=== PATIENT | female | born 1975 | race Caucasian/White ===

== ENCOUNTER 2016-12-10 21:23 | Emergency (ER) | payer BC, OTHER ==
--- NOTE | 2016-12-10 22:00 | ERNOTE ---
Lower Extremity HPI - General Lower Extremities Pain: knee: right - twisted Time Seen by Provider: 12/10/16 21:55 Source: patient Exam Limitations: no limitations - Immun/Allergies/Home Medications Immunizations: IMMUNIZATION HX Immunizations Up to Date Yes History of Influenza Vaccine No Hx Pneumococcal Vaccination No Allergies/Adverse Reactions: Allergies Allergy/AdvReac Type Severity Reaction Status Date / Time fexofenadine HCl Allergy Verified 12/10/16 21:34 [From Cyndi] hydrocodone Allergy Verified 12/10/16 21:44 Home Medications: HOME MEDICATIONS Baclofen 10 mg PO BID 12/21/14 [Last Taken Unknown] Hydrochlorothiazide [Hydrodiuril] 25 mg PO DAILY 05/28/15 [Last Taken Unknown] Cetirizine HCl [Zyrtec] 10 mg PO DAILY 12/10/16 [Last Taken Unknown] Diclofenac Sodium 75 mg PO BID 12/10/16 [Last Taken Unknown] Duloxetine HCl [Cymbalta] 30 mg PO DAILY 12/10/16 [Last Taken Unknown] Hydroxychloroquine Sulfate [Plaquenil] 200 mg PO BID 12/10/16 [Last Taken Unknown] Levonorgestrel [Mirena] 1 each IY DAILY 12/10/16 [Last Taken Unknown] Losartan Potassium [Cozaar] 50 mg PO Q48H 12/10/16 [Last Taken Unknown] sulfaSALAzine [Sulfasalazine Dr] 500 mg PO BID 12/10/16 [Last Taken Unknown] - History of Present Illness Narrative: Pt was walking and twisted her knee. She now has pain with movement. Occurred: just prior to arrival Method of Injury: Reports: twisted Modifying Factors - (Improves): Reports: immobilization Modifying Factors - (Worsens): Reports: movement Review of Systems - Review of Systems Constitutional: Present: no symptoms reported EYE: Present: no symptoms reported ENT: Present: no symptoms reported Respiratory: Present: no symptoms reported Cardiology: Present: no symptoms reported Gastrointestinal/Abdominal: Present: no symptoms reported Genitourinary: Present: no symptoms reported Musculoskeletal: Present: See HPI, joint pain, joint swelling. Absent: back pain Skin: Present: no symptoms reported Neurological: Absent: numbness, tingling Endocrine: Present: no symptoms reported Hematologic/Lymphatic: Present: no symptoms reported Psych: Present: no symptoms reported - Patient's Past Medical History Patient History - Medical: Chronic Pain, Migraines, Seizures, Other Patient History - Cardiac/Respiratory: Hypertension Patient History - Cancer: No Hx of Cancer Patient History - Surgical Procedures: Other Patient History - Other: None LMP (females 10-50): 2013 - Social History Living Situations: home Abuse History: No History of abuse Psych History: Hx of Anxiety, Hx of Depression, Current tx/ever been on anti- depressants or anti-anxiety meds Smoking Status: Never smoker Alcohol Use: none Drug Use: none - Immunizations Immunizations Up to Date: Yes Hx Pneumococcal Vaccination: No History of Influenza Vaccine: No Physical Exam - Physical Exam General Appearance: Present: wd/wn, alert, no apparent distress Neck: Present: normal inspection, supple Respiratory: Present: no respiratory distress, no accessory muscle use Extremity Exam: Present: no edema, bony tenderness - right patella. Absent: calf tenderness, joint redness, joint swelling Neurological Exam: Present: alert, oriented, normal mood/affect Skin Exam: Present: normal color, warm/dry ED Progress - Vital Signs Vital Signs: Vital Signs 12/10/16 21:29 Temperature 36.6 C Pulse Rate 83 Respiratory 18 Rate Blood Pressure 161/99 O2 Sat by Pulse 96 Oximetry - X-Ray X-Ray #1 X-Ray: knee Interpretation: Interp. by me X-ray Comments: No fracture or dislocation - Progress/Reassessment Chief Complaint: Lower Extremity Pain/ Injury Departure Clinical Impression: Strain of right knee Qualifiers: Encounter type: initial encounter Qualified Code(s): S86.911A - Strain of unspecified muscle(s) and tendon(s) at lower leg level, right leg, initial encounter - Departure Disposition: Home self-care Condition: Good Instructions: Cryotherapy, [id number], Knee Sprain, [id number] Additional Instructions: continue to take your current medications for pain. Follow up with your regular doctor if not improving. Referrals: Fabi Ivory MD [Primary Care Provider] -
--- OUTSIDE RECORDS SUMMARY | 2016-12-10 22:02 | XMS REPORT | Continuity of Care Document ---
:1975 Author Organization [employer] [place] [address] Care Team Providers Name Role Phone Cachorro Fabi Alejandro Primary Care Provider [phone] Source Comments This disclosure is being made pursuant to the [employer] program and maynot contain all information available regarding this patient.[employer] Active Allergies and Adverse Reactions Allergen Noted Date Severity Reactions Comments Cyndi 10/16/2015 Medium Rash,Dizziness Vicodin 03/09/2016 Low Itching Current Medications Be aware that medications may not be up to date as of this document. Alwaysverify current medications with the patient. Prescription Sig. Disp. Refills Start Date End Date Status cetirizine (ZYRTEC) 10 Take 10 mg Active MG tablet by mouth daily. polyethylene glycol Take 17 g by Active (GLYCOLAX) packet mouth daily. hydroxychloroquine Take 1 60 tablet 11 11/14/2015 Active (PLAQUENIL) 200 MG tablet by tablet mouth 2 (two) times daily. DULoxetine (CYMBALTA) 30 Take 1 01/23/2016 Active MG capsule capsule by mouth daily. traMADol (ULTRAM) 50 MG Take 1 01/02/2016 Active tablet tablet by mouth every 6 (six) hours as needed. sulfaSALAzine 1,000 mg 2 11 10/05/2016 Active (AZULFIDINE) 500 MG EC (two) times tablet daily. hydrochlorothiazide Take 1 30 tablet 5 11/29/2016 Active (HYDRODIURIL) 25 MG tablet by tablet mouth daily. baclofen (LIORESAL) 10 Take 1 60 tablet 5 11/29/2016 Active MG tablet tablet by mouth 2 (two) times daily. diclofenac sodium Take 1 60 tablet 11 11/29/2016 Active (VOLTAREN) 75 MG EC tablet by tablet mouth 2 (two) times daily. baclofen (LIORESAL) 10 Take 10 mg 11/30/19 Discontinued MG tablet by mouth 2 17 (two) times daily. hydrochlorothiazide Take 25 mg 11/30/19 Discontinued (HYDRODIURIL) 25 MG by mouth 17 tablet daily. Active Problems Problem Noted Date Morbid obesity with BMI of 50.0-59.9, adult (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) 03/09/2016 Most Recent Encounters Date Type Specialty Providers Description 11/30/2016 Telephone Rheumatology Evelyn Gilbert LPN Results 11/29/2016 Office Visit Rheumatology Tung Mckeon MD Osiris-Danlos syndrome (Primary Dx); Morbid obesity with BMI of 50.0-59.9, adult ([facility]) Social History Tobacco Use Types Packs/Day Years Used Date Never Smoker Smokeless Tobacco: Never Used Alcohol Use Drinks/Week oz/Week Comments No 0 Standard drinks or equivalent 0.0 Last Filed Vital Signs Vital Sign Reading Time Taken Blood Pressure 138/86 11/29/2016 2:53 PM CDT Pulse 71 11/29/2016 2:53 PM CDT Temperature - - Respiratory Rate - - Height 1.6 m (5' 3") 10/16/2015 10:31 AM CDT Weight 131.815 kg (290 lb 9.6 oz) 11/29/2016 2:53 PM CDT Body Mass Index 51.49 11/29/2016 2:53 PM CDT Oxygen Saturation - - Plan of Care Health Maintenance Due Date Last Done Comments Tetanus/Pertussis (1 - Tdap) 1996 Pap Smear 1998 Influenza Immunization (#1) 2016 Results from Last 3 Months Sedimentation rate (11/29/2016 3:28 PM) Component Value Range Sedimentation Rate 36(H) 0-20 mm/hr Narrative Testing performed at [facility], [address] [place] [address].[employer] [employer] Shiva Andrews MD High sensitivity CRP (11/29/2016 3:28 PM) Component Value Range CRP 13.70Comment: mg/L Cardiac Risk Assessment(mg/L) <0.6Normal 0.7 - 1.1 Relative Risk 1.7 1.2 - 2.1 Relative Risk 2.6 > 2.2 Relative Risk 2.9 > 4.94The high sensitivity CRP result may be confounded by acute inflammatory disease. Clinical correlation essential.Inflammatory process: 0.07 - 4.94 mg/L Narrative Testing performed at [facility], [address] [place] [address].[employer] [employer] Shiva Andrews MD Comprehensive metabolic panel (11/29/2016 3:28 PM) Component Value Range Glucose 81Comment: 60-100 mg/dL Fasting Plasma Glucose (FPG)<100 MG/DL Impaired Fasting Glucose (IFG) 100-125 MG/DL Provisional Diagnosis of Diabetes Mellitus > sh=760 MG/DL (Diagnosis Must Be Confirmed) BUN, Blood 12 7-19 mg/dL Creatinine 0.7 0.6-1.2 mg/dL Glomerular Filtration Rate 109 >90 mL/min/1.73mm2 Estimate Glomerlular Filtration Rate 126Comment:The estimated GFR >90 mL/min/1.73mm2 Estimate- has not been validated for women or patients with serious comorbid conditions, or with extremes of body size, muscle mass, or nutritional status. Calcium 9.1 8.4-10.2 mg/dL Sodium 139 136-145 mmol/L Potassium 3.8 3.5-4.6 mmol/L Chloride 106 99-111 mmol/L CO2 25.8 21.0-32.0 mmol/L Albumin 3.4(L) 3.5-5.0 g/dL Total Protein 6.8 6.1-8.0 g/dL Bilirubin Total 0.5 0.2-1.2 mg/dL Alkaline Phosphatase 65 40-150 U/L AST 13 5-34 U/L ALT 13 0-55 u/L Narrative Testing performed at [facility], [address] [place] [address].[employer] [employer] Shiva Andrews MD CBC auto differential (11/29/2016 3:28 PM) Component Value Range WBC 9.4 3.1-11.0 x10^3/uL RBC 3.99(L) 4.00-5.10 x10^6/uL Hemoglobin 12.1(L) 12.5-15.3 g/dL Hematocrit 35.6 33.7-46.0 % MCV 89.2 82.0-98.0 fL MCH 30.3 27.2-33.3 pg MCHC 34.0 32.0-36.0 g/dL RDW 12.1 11.5-14.7 % SD-RDW 39.5 36.5-50.0 fL Platelets 276 150-450 x10^3/uL MPV 10.4 9.1-12.1 fL NE% 68.2 42.0-76.0 % %LYMPH 20.5 13.5-48.0 % %MONO 9.0 3.5-14.0 % % Eosinophils 1.6 0.0-7.0 % % Basophils 0.4 0.0-1.5 % Imm Gran Relative 0.3 0.0-1.0 % NE# 6.4 1.2-7.3 x10^3/uL Lymphs # 1.9 0.7-3.5 x10^3/uL [place]# 0.9 0.2-0.9 x10^3/uL Eosinophil # 0.2 0.0-0.5 x10^3/uL Baso# 0.0 0.0-0.1 x10^3/uL Imm Gran Absolute 0.03 0.00-0.10 x10^3/uL NRBC % 0.00 0.00-0.10 /100 WBC Specimen BLOOD Narrative Testing performed at [facility], [address] [place] [address].[employer] [employer] Shiva Andrews MD Insurance Payer Benefit Plan / Subscriber ID Type Phone Address Group [employer] [facility] [id number] Out of State [phone] [id number] [facility] [place] [place] [address]
[2016-12-10 23:49] VITALS: BP 152/87
== END 2016-12-10 23:45 | disposition home or self-care (01) ==
LOC: ER 21:23
DX: S86.911A Strain of unspecified muscle(s) and tendon(s) at lower leg level, right leg, initial encounter (principal); Y93.01 Activity, walking, marching and hiking; Y92.9 Unspecified place or not applicable; Y99.9 Unspecified external cause status; I10 Essential (primary) hypertension

== ENCOUNTER 2017-07-03 21:37 | Emergency (ER) | payer BC, MEDICARE ==
--- NOTE | 2017-07-03 22:08 | ERNOTE ---
Headache ER HPI - Narrative Date of Service: 07/03/17 - General Presenting Symptoms: headache, facial pain, fever Time Seen by Provider: 07/03/17 21:50 Source: patient Exam Limitations: no limitations - Immun/Allergies/Home Medications Immunizations: IMMUNIZATION HX Immunizations Up to Date Yes History of Influenza Vaccine No Hx Pneumococcal Vaccination No Allergies/Adverse Reactions: Allergies fexofenadine HCl [From Cyndi] Allergy (Verified 07/03/17 21:47) hydrocodone Allergy (Verified 07/03/17 21:47) Home Medications: HOME MEDICATIONS Baclofen 10 mg PO BID 12/21/14 [Last Taken Unknown] Hydrochlorothiazide [Hydrodiuril] 25 mg PO DAILY 05/28/15 [Last Taken Unknown] Diclofenac Sodium 75 mg PO BID 12/10/16 [Last Taken Unknown] Duloxetine HCl [Cymbalta] 30 mg PO DAILY 12/10/16 [Last Taken Unknown] Hydroxychloroquine Sulfate [Plaquenil] 200 mg PO BID 12/10/16 [Last Taken Unknown] Levonorgestrel [Mirena] 1 each IY DAILY 12/10/16 [Last Taken Unknown] sulfaSALAzine [Sulfasalazine Dr] 500 mg PO BID 12/10/16 [Last Taken Unknown] Benzonatate 200 mg PO Q8H PRN #30 capsule 07/03/17 [Last Taken Unknown] Loratadine 10 mg PO PRN 07/03/17 [Last Taken Unknown] - Pain Pain Score: 2 - History of Present Illness Narrative: Pt is a 42 year old female who presents with complaints of malaise, fevers up to 104.1, cough, right ear pain, nasal drainage and sinus pain which began one week ago. These symptoms have progressively getting worse. She also endorses a CANO and lightheadedness. She denies n/v/d, SOB, wheezing, CP, palpations, confusion, or vision changes. She states that all members of her family have been sick with similar symptoms, but have not sought medical attention. She hasn 't been taking anything at home for these symptoms. She also reports being noncompliant with all over her medication except for her BP medication, but she hasn't taken that in one week. Prior to coming in she states she developed right sided facial numbness. She does not receive the influenza vaccine. Nothing but makes any of her symptoms better or worse. Date (Duration): 06/26/17 Timing of Headache: constant Quality: Present: achy, pressure Severity Maximum: Present: moderate Severity-Currently: Present: moderate Headache frequency: Present: no recent headache Modifying Factors - (Improves): Reports: rest Associated Symptoms: Reports: fever/chills, nasal congestion, nasal drainage, fatigue, numbness/tingling, light-headedness. Denies: nausea, vomiting, facial pain, weakness, vision changes, confusion, dizziness, loss of consciousness, seizures, neck pain/stiffness, speech problems Review of Systems - Review of Systems Constitutional: Present: fever, chills, fatigue, malaise, decreased activity level EYE: Present: no symptoms reported ENT: Present: ear pain, nose congestion, nasal drainage. Absent: ear discharge , sore throat, throat swelling Respiratory: Present: cough. Absent: shortness of breath, orthopnea, wheezing Cardiology: Absent: chest pain, palpitations Gastrointestinal/Abdominal: Absent: nausea, vomiting, diarrhea Genitourinary: Absent: frequency, pain, dysuria Musculoskeletal: Present: muscle stiffness Skin: Present: no symptoms reported Neurological: Present: headache, dizziness/light-headedness, numbness - right facial around mouth Endocrine: Present: no symptoms reported Hematologic/Lymphatic: Present: no symptoms reported Psych: Present: no symptoms reported - Patient's Past Medical History Patient History - Medical: Chronic Pain, Migraines, Seizures, Other Patient History - Cardiac/Respiratory: Hypertension Patient History - Cancer: No Hx of Cancer Patient History - Surgical Procedures: Other Patient History - Other: None - Social History Abuse History: No History of abuse Psych History: Hx of Anxiety, Hx of Depression, Current tx/ever been on anti- depressants or anti-anxiety meds Smoking Status: Never smoker Have you smoked in the past 12 months: No Do you dip or chew tobacco: No Alcohol Use: none Drug Use: none - Immunizations Immunizations Up to Date: Yes Hx Pneumococcal Vaccination: No History of Influenza Vaccine: No Physical Exam - Physical Exam General Appearance: Present: wd/wn, alert, no apparent distress, obese Head Exam: Present: normal inspection, no evidence of injury Eye Exam: Normal inspection: bilateral Ears, Nose, Throat: Present: cerumen impaction - left, nasal congestion, sinus pain/drainage, pharyngeal erythema. Absent: normal pharynx, pharyngeal swelling , tonsillar exudate Neck: Present: normal inspection, nontender. Absent: lymphadenopathy (R), lymphadenopathy (L) Respiratory: Present: no respiratory distress, normal breath sounds, no accessory muscle use, chest nontender, lungs clear. Absent: crackles, rales, rhonchi, wheezing Cardiovascular/Chest: Present: regular rate, rhythm, no murmur, normal peripheral pulses Gastrointestinal/Abdominal: Present: normal bowel sounds, nontender, nondistended, soft, no organomegaly Back Exam: Present: no CVA tenderness Extremity Exam: Present: normal inspection, non-tender, normal range of motion, no edema Neurological Exam: Present: alert, oriented, normal mood/affect, no motor/ sensory deficits, other - pt has no evidence of slurred speech, tongue midline, face is symmetric, there is no pronator driff . Absent: facial droop, motor weakness, disoriented to person, disoriented to place, disoriented to situation Skin Exam: Present: normal color, warm/dry Lymphatic Exam: Present: no adenopathy ED Progress - Vital Signs Patient's Vital Signs:: I have reviewed the patient's vital signs. Vital Signs: Vital Signs 07/03/17 21:41 Temperature 37.1 C Pulse Rate 87 Respiratory 16 Rate Blood Pressure 161/118 O2 Sat by Pulse 99 Oximetry - X-Ray X-Ray #1 X-Ray: chest Interpretation: Interp. by me X-ray Comments: No evidence of acute cardiopulmonary processes. - Progress/Reassessment Chief Complaint: Headache Progress:: Improved Plan - Plan Plan: Pt is influenza B positive. She has been given Tylenol for her fever here. I am reluctant to given pt medication to lower her BP as she is noncompliant with her medication and she probably lives elevated. I have went over the importance of not just taking her BP medication, but all of her medication. Chest xray is without any acute findings. She is out of the window for treatment of Tamiflu. She will be sent home with luisa garcia with instructions to follow up with her PCP in one week and return if symptoms worsen or do not improve. Facial numbness has since improved, she did not have any clinical signs that I would suspect that this is neurological in nature. Departure Clinical Impression: Influenza B, Cough Fever Qualifiers: Fever type: unspecified Qualified Code(s): R50.9 - Fever, unspecified Hypertension Qualifiers: Hypertension type: essential hypertension Qualified Code(s): I10 - Essential ( primary) hypertension - Departure Disposition: Home Follow Up Needed Condition: Good Instructions: Influenza, Adult, [id number] Additional Instructions: You have influenza A, since you have had symptoms for a week, you are out of the timeframe for treatment with Tamiflu. Please go home, rest, drink plenty of water, take tylenol and ibuprofen to assist with fever and pain control. Take Tessalon Pearls as directed to help with cough. Please follow up with your family PCP in one week. Please return if symptoms do not improve or worsen. Referrals: Fabi Ivory MD [Primary Care Provider] - 07/11/17 Prescriptions: Benzonatate 200 mg PO Q8H PRN #30 capsule PRN Reason: Cough
[2017-07-03] MEDS ORDERED: ACETAMINOPHEN 325 MG TABLET PO ONE (22:09)
[2017-07-03] MEDS ORDERED: ACETAMINOPHEN 325 MG TABLET ONE (22:10)
[2017-07-03] MEDS ORDERED: BENZONATATE 100 MG CAPSULE PO ONE ×2 (22:29→22:32)
[2017-07-03 23:12] VITALS: BP 140/103
== END 2017-07-03 22:41 | disposition home or self-care (01) ==
LOC: ER 21:37
DX: J11.1 Influenza due to unidentified influenza virus with other respiratory manifestations (principal); R50.9 Fever, unspecified; I10 Essential (primary) hypertension; G89.29 Other chronic pain